=== PATIENT | male | born 1985 | race Caucasian/White ===

== ENCOUNTER → 2024-08-17 08:14 | Outpatient (CLI) | payer OTHER, SELFPAY ==
--- NOTE | 2024-08-17 08:17 | DI.US.S_ITS ---
PROCEDURE: US ABDOMEN LIMITED INDICATIONS: elevated liver transaminase levels TECHNIQUE: Real-time scanning was performed of the abdominal and retroperitoneal organs, with image documentation. COMPARISON: None. FINDINGS: Liver: Increased liver echogenicity with posterior attenuation, most consistent with moderate to severe steatosis. Gallbladder: No gallstones. No wall thickening. No pericholecystic edema. Negative sonographic Schilling's sign. Biliary ducts: Intrahepatic bile ducts are non-dilated. Extrahepatic bile duct caliber measures 4 mm. Normal is 6-7 mm or less in diameter, or 10 mm or less post-cholecystectomy. Pancreas: Visualized portions of the pancreas are sonographically normal. Miscellaneous: No free abdominal fluid. IMPRESSION: Moderate to severe hepatic steatosis. In the absence of alcohol use or other confounding factors, elevated LFTs may indicate [id number] steatohepatitis (MASH). Dictated by: Mich Zelaya M.D. on 08/17/2024 at 12:57 Approved by: Mich Zelaya M.D. on 08/17/2024 at 12:58
== END ==
LOC: US 08:16
PROVIDERS: Referring Provider Family Medicine; Visit Provider Family Medicine
DX: K76.0 Fatty (change of) liver, not elsewhere classified (principal); R74.01 Elevation of levels of liver transaminase levels
CPT/HCPCS: 76705

== ENCOUNTER → 2024-09-25 11:20 | Outpatient (CLI) | payer OTHER, SELFPAY ==
--- NOTE | 2024-09-25 11:21 | DI.US.S_ITS ---
PROCEDURE: US SCROTUM INDICATIONS: NEW ONSET TENDER LEFT TESTICULAR MASS TECHNIQUE: Real-time scanning was performed of the scrotum and testicles, with image documentation. Color and pulse Doppler interrogation was performed of both testicles. COMPARISON: None. FINDINGS: Right: Testicle is normal in size at 5.1 x 3.2 x 2.3 cm, and homogenous in echotexture. Epididymis is normal in overall size and morphology. Tubular ectasia is seen. No hydrocele or varicoceles. Overlying scrotal skin is normal in thickness. Left: Testicle is normal in size at 5.0 x 3.1 x 2.1 cm, and homogeneous in echotexture. Epididymis is normal in overall size and morphology. Tubular ectasia is noted. Ill-defined 1.3 x 1.3 x 1.2 cm hypoechoic structure is seen medial to the epididymal tail and show internal vascularity. No hydrocele and. Mild left-sided varicocele is seen measures up to 4 mm in diameter. Overlying scrotal skin is normal in thickness. Doppler: Color and pulse Doppler demonstrate normal and symmetric arterial flow in both testicles. IMPRESSION: 1. Bilateral tubular ectasia. Ill-defined hypoechoic and solid appearing area involving soft tissue medial to the left epididymal tail and measures 1.3 x 1.3 x 1.2 cm in size and is of indeterminate etiology. Internal vascularity is seen. Clinical and sonographic follow-up in 4-6 weeks is recommended. 2. Small left-sided varicoceles. 3. Normal appearing bilateral testes. No significant hydroceles. Dictated by: Christopher Cosme M.D. on 09/25/2024 at 18:12 Approved by: Christopher Cosme M.D. on 09/25/2024 at 18:14
== END ==
PROVIDERS: PCP Family Medicine; Referring Provider Family Medicine; Visit Provider Family Medicine
DX: N50.89 Other specified disorders of the male genital organs (principal); I86.1 Scrotal varices
CPT/HCPCS: 76870